=== PATIENT | female | born 1990 ===

== ENCOUNTER 2017-10-31 23:22 | Emergency (ER) | payer BC ==
[2017-10-31 23:43] VITALS: BP 106/70; PULSE 68; RESP 18; TEMP 98.2; O2SAT 100
--- NOTE | 2017-11-01 00:33 | C.PDOC ---
History Of Present Illness 26 year old female presents to the emergency department with complaints of an intermittent sore throat that has persisted for the past three weeks. Patient reports that she was seen by her PMD and had various blood-work and cultures done with normal results. Patient reports that her pain was the worst tonight, associated with painful swallowing. Patient states that her pain is radiating bilaterally to her ears but denies fever. Time Seen by Provider: 10/31/17 23:52 Chief Complaint (Nursing): ENT Problem History Per: Patient History/Exam Limitations: None Onset/Duration Of Symptoms: Other (3 weeks) Quality (Ear): Other (radiating from throat) Quality (Mouth/Throat): Other (pain with swallowing) Past Medical History Reviewed: Historical Data, Nursing Documentation, Vital Signs Vital Signs: Last Vital Signs Temp 98.2 F 10/31/17 23:40 Pulse 68 10/31/17 23:40 Resp 18 10/31/17 23:40 BP 106/70 10/31/17 23:40 Pulse Ox 100 11/01/17 05:22 - Medical History PMH: No Chronic Diseases Surgical History: No Surg Hx Family History: States: No Known Family Hx - Social History Hx Alcohol Use: No Hx Substance Use: No - Immunization History Hx Tetanus Toxoid Vaccination: No Hx Influenza Vaccination: Yes Hx Pneumococcal Vaccination: No Review Of Systems ENT: Positive for: Ear Pain, Throat Pain Physical Exam - Physical Exam Appears: Non-toxic, No Acute Distress Head: Atraumatic Eye(s): bilateral: Normal Inspection, PERRL, EOMI Ear(s): Bilateral: Normal Nose: No Normal Oral Mucosa: Moist Tongue: Normal Appearing Throat: Normal, No Erythema, No Exudate, No Drooling Neck: Normal, No Other (swelling) Lymphatic: No Adenopathy ED Course And Treatment O2 Sat by Pulse Oximetry: 100 (RA) Pulse Ox Interpretation: Normal Progress Note: Patient advised to follow up with an ENT physician. 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 - Scribe Statement The provider has reviewed the documentation as recorded by the Scribe (Mohsen Liu) All medical record entries made by the Scribe were at my direction and personally dictated by me. I have reviewed the chart and agree that the record accurately reflects my personal performance of the history, physical exam, medical decision making, and the department course for this patient. I have also personally directed, reviewed, and agree with the discharge instructions and disposition.
== END 2017-11-01 00:39 | disposition home or self-care (01) ==
LOC: SUPCPDRO 23:22 → C.ER 23:22
DX: J02.9 Acute pharyngitis, unspecified (principal)